=== PATIENT | female | born 1985 | race Caucasian/White ===

== ENCOUNTER 2017-04-06 09:53 | Emergency (ER) | payer OTHER ==
[~2017-04-06] VITALS: Ht 147.3 cm; Wt 57.1 kg
[2017-04-06 10:31] LABS: microscopic required? YES; urine erythrocyte TRACE (NEGATIVE)
[2017-04-06 11:16] LABS: BASOPHIL % 0.4 % (0-2); PLATELET COUNT 209 x10^3mcL (130-400); RED CELL DISTRIBUTION WIDTH 12.9 % (11.5-14.5)
[2017-04-06 11:48] LABS: CARBON DIOXIDE 27.8 mmol/L (21-32); CHLORIDE SERUM 101 mmol/L (98-107); CREATININE SERUM 0.6 mg/dL (0.6-1.0); GFR1 > 60 mL/min; GLUCOSE SERUM 90 mg/dL (74-106); POTASSIUM SERUM 3.5 mmol/L (3.5-5.1); SODIUM SERUM 137 mmol/L (136-145)
[2017-04-06 11:54] LABS: ALBUMIN 3.5 g/dL (3.4-5.0); TOTAL PROTEIN, SERUM 7.8 g/dL (6.4-8.2)
[2017-04-06 11:55] LABS: ALKALINE PHOSPHATASE 61 U/L (46-116); ALT/SGPT 20 U/L (14-59); AST/SGOT 19 U/L (15-37); BILIRUBIN TOTAL 0.7 mg/dL (0.20-1.00); MAGNESIUM 1.8 mg/dL (1.8-2.4)
[2017-04-06 12:21] VITALS: BP 118/74
== END 2017-04-06 12:58 | disposition home or self-care (01) ==
LOC: ED 09:53
PROVIDERS: Emergency Medicine
DX: O21.0 Mild hyperemesis gravidarum (principal); Z3A.08 8 weeks gestation of pregnancy
CPT/HCPCS: J2405; J7030

== ENCOUNTER 2018-09-22 17:52 | Emergency (ER) | payer OTHER ==
[~2018-09-22] VITALS: Ht 147.3 cm; Wt 54.4 kg
[2018-09-22 17:54] VITALS: Ht 147.3 cm; Wt 54.4 kg
[2018-09-22 20:30] VITALS: BP 125/85
== END 2018-09-22 20:36 | disposition home or self-care (01) ==
LOC: ED 17:52
DX: F41.9 Anxiety disorder, unspecified (principal); K59.00 Constipation, unspecified
CPT/HCPCS: Q0163